=== PATIENT | male | born 1970 | race Caucasian/White ===

== ENCOUNTER 2019-10-13 08:35 | Outpatient (CLI) | payer OTHER, SELFPAY ==
--- NOTE | 2019-10-13 08:55 | MR_ITS ---
WS: [id number] MRI LUMBAR SPINE NONCONTRAST HISTORY: LUMBAGO, back pain radiating to LEFT hip. COMPARISON: None available. TECHNIQUE: Sagittal and axial multisequence imaging is submitted. Mild degenerative changes in the cervical and thoracic spine. L4 retrolisthesis by 4.3 mm. Moderate disc space narrowing and desiccation from L3-4 to L5-S1. Chroni c endplate changes from L3 to S1. No acute fracture. Acute marrow edema in the LEFT lateral L4 and L5 vertebral bodies with extension into the LEFT L5 pedicle. There is also small amount of marrow edema in the RIGHT L3 posterior elements. Small osteophyte with mild encroachment upon the ventral thecal sac at T11-12. Conus terminates normally at L1-2 disc level. L1-L2: Normal. L2-L3: Diffuse disc bulging and mild osteophytosis. Marked ligamentum flavum hypertrophy and facet ar thropathy. Mild encroachment and narrowing of the central canal and subarticular recesses. Mild RIGHT and moderate LEFT foraminal stenosis. Edema in the RIGHT L3 lamina and pedicle with adjacent inflamm atory changes in the soft tissues related to the facet joint. L3-L4: Diffuse disc bulging and osteophytosis. Mild ligamentum flavum hypertrophy and facet arthropat hy. Mild narrowing of the central canal and subarticular recesses. Mild bilateral foraminal stenosis. L4-L5: Diffuse moderate annular disc bulging slightly asymmetric to the LEFT. Disc osteophyte extends in the LEFT subarticular recess. Osteophytic ridging with facet and ligamentum flavum arthropathy. C omplete effacement of CSF. Significant central stenosis and subarticular recess stenosis. Moderate to severe bilateral foraminal stenosis. L5-S1: Asymmetric disc bulging with a LEFT paracentral disc osteophyte complex causing posterior disp lacement of the thecal sac and the S1 nerve root on the LEFT. Marked facet joint arthropathy. Severe LEFT and moderate RIGHT foraminal stenosis. RIGHT renal cyst measures 3.3 cm. MR/MR lumbar spine wo con* [id number] IMPRESSION: 1. Multilevel degenerative disc disease and spondylosis most significant from L3-4 to L5-S1. 2. Severe central and subarticular recess stenosis and bilateral foraminal michelle nosis at L4-5 due to combination of factors as above. 3. Severe LEFT and moderate RIGHT foraminal stenosis at L5-S1. Disc osteophyte encroachment upon the LEFT S1 nerve root. 4. Mild central, subarticular recess stenosis and foraminal stenosis at L3-4. 5. Moderate LEFT foraminal stenosis at L2-3. 6. Marrow edema in the RIGHT L3 lamina and pedicle with adjacent soft tissue i nflammatory changes in the interspinous ligament. May be related to an acute in jury or synovitis related to the facet joint. 7. Acute marrow edema in the LEFT far lateral vertebral bodies of L4 and L5.
== END 2019-10-13 08:36 | disposition home or self-care (01) ==
PROVIDERS: Family Provider Nurse Practitioner Family; PCP Nurse Practitioner Family; Visit Provider Physician Assistant Medical
DX: M47.896 Other spondylosis, lumbar region (principal); M47.897 Other spondylosis, lumbosacral region; M48.061 Spinal stenosis, lumbar region without neurogenic claudication; M48.07 Spinal stenosis, lumbosacral region
CPT/HCPCS: 72148

== ENCOUNTER 2019-10-26 09:45 | Outpatient (CLI) | payer OTHER, SELFPAY ==
--- NOTE | 2019-10-26 09:58 | XR_ITS ---
WS: [id number] LUMBAR SPINE FLEXION AND EXTENSION TECHNIQUE: 3 views of the lumbar spine: Lateral neutral, flexion, and extension views. CLINICAL INFORMATION: low back pain, INTERVERTEBRAL DISC DISORDER COMPARISON: None. FINDINGS: Normal lumbar alignment on the neutral view. No instability on the flexion and extension views. Mild disc space narrowing worse at L3-L4, L4-L5, a nd L5-S1. Mild facet arthropathy L5-S1. Anterior wedging at T11. XR/XR lumbar spine f/e only [id number] IMPRESSION: 1. Normal alignment on the neutral view. 2. No instability on flexion-extension. 3. Disc space narrowing worse at L3-L4, L4-L5 and L5-S1. 4. Chronic anterior wedging T11.
== END 2019-10-26 09:46 | disposition home or self-care (01) ==
LOC: WPI 09:49
PROVIDERS: Family Provider Nurse Practitioner Family; PCP Nurse Practitioner; Visit Provider Licensed Practical Nurse
DX: M51.86 Other intervertebral disc disorders, lumbar region (principal); M54.5 Low back pain
CPT/HCPCS: 72120

== ENCOUNTER 2019-10-28 07:56 | Outpatient (RCR) | payer OTHER, SELFPAY | END 2019-10-30 23:59 | disposition home or self-care (01) | LOC: SPT 07:56 | PROVIDERS: Family Provider Nurse Practitioner Family; PCP Nurse Practitioner; Referring Provider Licensed Practical Nurse; Visit Provider Licensed Practical Nurse | DX: M51.17 Intervertebral disc disorders with radiculopathy, lumbosacral region (principal) | CPT/HCPCS: 97161 ==

== ENCOUNTER → 2019-11-19 08:39 | Outpatient (BNVA) | payer OTHER, SELFPAY | PROVIDERS: Family Provider Nurse Practitioner Family; PCP Nurse Practitioner; Visit Provider Anesthesiology Pain Medicine | DX: M48.062 Spinal stenosis, lumbar region with neurogenic claudication (principal); M47.816 Spondylosis without myelopathy or radiculopathy, lumbar region; M51.17 Intervertebral disc disorders with radiculopathy, lumbosacral region; F17.290 Nicotine dependence, other tobacco product, uncomplicated; Z79.891 Long term (current) use of opiate analgesic | CPT/HCPCS: 99203; 99999 ==